=== PATIENT | female | born 1960 | race Caucasian/White ===

== ENCOUNTER → 2016-05-09 | Outpatient (CLI) | payer BC ==
[~2016-05-09] MED LIST: ANTIBIOTIC O500 U/GM TP; BACTRIM DS 8001 TA1 PO; CLEOCIN150 MG PO; KEFLEX500 MG PO; MOTRIN800 MG PO; NEXIUM40 MG PO; ZOFRAN4 MG PO
== END | disposition home or self-care (01) ==
LOC: ORTHO 01:21
DX: M25.512 Pain in left shoulder (principal)

== ENCOUNTER → 2016-07-24 | Outpatient (CLI) | payer BC ==
[2016-07-24 13:22] LABS: ALKALINE PHOSPHATASE 70 U/L (45-117); BILIRUBIN, TOTAL 0.3 mg/dl (0.2-1.0); BUN 23 mg/dl (7-24); CARBON DIOXIDE 27 mmol/L (21-32); CHLORIDE 109 mmol/L (98-107); EST GLOM FILT AFRICAN AMERICAN > 60 ml/min; GLUCOSE 87 mg/dL (65-99); POTASSIUM 4.3 mmol/L (3.5-5.1); SGOT/AST 17 IU/L (3-35); SGPT/ALT 28 U/L (12-78); SODIUM 144 mmol/L (136-145); TOTAL PROTEIN 6.9 gm/dL (6.4-8.2)
[2016-07-24 16:28] LABS: BILIRUBIN NEGATIVE (NEGATIVE); BLOOD TRACE-INTACT (NEGATIVE); CLARITY SL CLOUDY (CLEAR); COLOR YELLOW (YELLOW); GLUCOSE NEGATIVE (NEGATIVE); KETONE NEGATIVE (NEGATIVE); LEUKO ESTERASE 1+ (NEGATIVE); NITRITE POSITIVE (NEGATIVE); PH 5.5 (5.0-9.0); PROTEIN NEGATIVE (NEGATIVE); SPECIFIC GRAVITY 1.025 (1.005-1.030); UROBILINOGEN 0.2 E.U./dl (0.2-1.0)
[2016-07-24 16:35] LABS: BACTERIA 4+
== END | disposition home or self-care (01) ==
LOC: LAB 10:40
PROVIDERS: Orthopaedic Surgery
DX: Z01.818 Encounter for other preprocedural examination (principal); M75.102 Unspecified rotator cuff tear or rupture of left shoulder, not specified as traumatic; M75.40 Impingement syndrome of unspecified shoulder

== ENCOUNTER → 2016-08-07 | Day surgery (SDC) | payer BC ==
[2016-07-24 10:52] VITALS: BP 134/70
[2016-08-06 12:06] LABS: BASO # 0.1 10*3/uL (0.0-0.1); BASO % 0.7 % (0.0-1.0); EOS # 0.1 10*3/uL (0.0-0.4); EOS % 1.9 % (1.0-4.0); HEMATOCRIT 40.1 % (37.0-47.0); HEMOGLOBIN 13.9 g/dl (12.0-16.0); LYMPH # 2.8 10*3/uL (1.3-4.4); LYMPH % 42.1 % (27.0-41.0); MEAN CELL VOLUME 92.4 fl (81.0-99.0); MEAN CORPUSCULAR HGB CONC 34.7 g/dl (33.0-37.0); MEAN PLATELET VOLUME 9.4 fl (9.6-12.3); MONO # 0.4 10*3/uL (0.1-1.0); MONO % 5.6 % (3.0-9.0); NEUT # 3.3 10*3/uL (2.3-7.9); NEUT % 49.4 % (47.0-73.0); PLATELET COUNT AUTOMATED 181 10*3/uL (130-400); RED BLOOD COUNT 4.34 10*6/uL (4.10-5.10); RED CELL DISTRI WIDTH 12.9 % (0-14.5); WHITE BLOOD COUNT 6.8 10*3/uL (4.8-10.8)
[2016-08-07] VITALS (12 sets, daily range): BP systolic 144–165; BP diastolic 76–92
[~2016-08-07] VITALS: Ht 170.1 cm; Wt 68.0 kg
[~2016-08-07] MED LIST changes: +PERCOCET 325 MG1 TA2 PO
--- NOTE | ~2016-08-07 | O ---
[place], [place] OPERATIVE NOTE [facility]: [id number] UNIT #: [id number] ROOM: DOCTOR: JACKIE REYES DO BIRTHDATE: [birth year] DOS: 08/07/2016 PREOPERATIVE DIAGNOSES: Left rotator cuff tear, impingement, acromioclavicular joint arthritis. POSTOPERATIVE DIAGNOSES: Left rotator cuff tear, impingement, acromioclavicular joint arthritis. OPERATIVE PROCEDURE: Left rotator cuff repair, subacromial decompression and Hector procedure. SURGEON: Jackie Reyes DO. PHYSICIAN AIDE: Vansesa. ANESTHESIA: Rios, SLATE SPLITTER. INDICATIONS: The patient is a 56-year-old female with a history of pain and disability in the left shoulder, unrelieved with conservative care. Risks and benefits of the procedure were explained to the patient preoperatively. Preoperative labs and x-rays were obtained. PROCEDURE IN DETAIL: The left shoulder was marked in the holding room. The patient was brought to the operative suite. The patient was placed supine on the operative table. A general anesthetic with endotracheal intubation was performed. The patient was placed into a modified beach chair position. Time-out was performed. The patient received Ancef 2 grams IV piggyback. Landmarks were identified after the left shoulder was prepped and draped in the usual orthopedic fashion. An incision was planned between the acromion and the coracoid process, marked with a marking pen and injected with Marcaine 0.5% with epinephrine. An incision was made sharply with a scalpel. Subcutaneous tissue was spread down to the level of the deltoid. Deltoid was released from the acromion. The acromial spurs were identified and an osteotome was used to remove the anterior 1 cm of the acromion. The undersurface of the acromion was gently smoothed using a handheld rasp. The undersurface of the acromioclavicular joint was palpated and noted to have some spurring and impingement upon the area of the rotator cuff repair. The capsule was cleared from the distal acromion. An oscillating saw was used to remove the distal 1 cm of the acromion. The undersurface was smoothed with the rasp. Attention was then turned to the rotator cuff tear. This was noted to be approximately 2.5 x 2 cm at the level of the supraspinatus with some retraction. The Arthrex bone anchors were utilized to repair the tear. Initially, a punch was utilized at the level of the supraspinatus footprint followed by placement of 2 Arthrex BioComposite SwiveLock double-loaded anchors. The anchors were advanced and noted to be flushed at the acromion. The TaxJar suture passer was utilized to create a SpeedBridge with the FiberTape from the SwiveLock. When this was completed, the additional SwiveLocks were threaded with the [place], [place] OPERATIVE NOTE NAME: NIR HAWKINS UNIT #: [id number] ROOM: DOCTOR: JACKIE REYES DO BIRTHDATE: [birth year] FiberTape, one from each of the previously placed SwiveLocks. The final 2 SwiveLocks were placed using a punch followed by manual tightening and evaluation of the tear. There was noted to be a continued flap of the supraspinatus and the repair was reinforced using the stay sutures on the final 2 SwiveLocks. The tear was evaluated and taken through a range of motion and noted to have adequate repair. The FiberTape and FiberWire were cut. The area was copiously irrigated with normal saline. The deltoid was allowed to return to its natural position at the acromion and this was repaired using 2-0 FiberWire. The acromioclavicular joint was repaired with 2-0 Vicryl. The area was copiously irrigated with normal saline and closed with 2-0 Vicryl followed by skin christelle. Incision was again injected with Marcaine 0.5% with epinephrine. Xeroform, 4 x 4s, ABDs, and Tegaderm were applied as a dressing, followed by a sling with an abduction pillow. The patient was returned to a supine position. The anesthetic was reversed. The patient was extubated and taken to the recovery room in satisfactory condition. COUNTS: Sponge and needle count correct. ESTIMATED BLOOD LOSS: 100 mL. FINDINGS: 1. Left rotator cuff tear, complete with retraction. 2. Subacromial impingement. 3. Degenerative changes of the acromioclavicular joint. SPECIMENS: Distal clavicle and anterior acromion. DRAINS: None. PACKING: None. COMPLICATIONS: None. IMPLANTS: Arthrex BioComposite SwiveLock C 4.75 x 19.1, #2. Arthrex BioComposite SwiveLock double-loaded 4.75 x 22, #2. [place], [place] OPERATIVE NOTE NAME: NIR HAWKINS UNIT #: [id number] ROOM: DOCTOR: JACKIE REYES DO BIRTHDATE: [birth year] JACKIE REYES DO CM:OPRECORD:OPERATIVE NOTE [id number] JACKIE REYES DO 08/07/16 [id number]
== END | disposition home or self-care (01) ==
LOC: SDC 07-24 11:00
PROVIDERS: Orthopaedic Surgery
DX: M75.102 Unspecified rotator cuff tear or rupture of left shoulder, not specified as traumatic (principal); M75.42 Impingement syndrome of left shoulder; M19.012 Primary osteoarthritis, left shoulder; Z90.710 Acquired absence of both cervix and uterus; Z80.9 Family history of malignant neoplasm, unspecified

== ENCOUNTER → 2017-01-14 | Outpatient (CLI) | payer BC | END | disposition home or self-care (01) | LOC: ORTHO 02:16 | DX: M25.512 Pain in left shoulder (principal) ==

== ENCOUNTER 2023-12-20 19:17 | Emergency (ER) | payer OTHER ==
[~2023-12-20] VITALS: Ht 167.6 cm; Wt 79.6 kg
[2023-12-20 19:27] VITALS: BP 161/63
[2023-12-20] MEDS ORDERED: fentaNYL CITRATE 100 MCG/2 ML VIAL IV ONE (19:35)
[2023-12-20] MEDS ORDERED: SODIUM CHLORIDE 0.9% 1,000 ML IV ONE (19:35)
[2023-12-20] MEDS ORDERED: Ondansetron Hydrochloride 4 MG/2 ML VIAL IV ONE (19:35)
[2023-12-20 19:39] LABS: BILIRUBIN Negative (Negative); BLOOD Trace-Intact (Negative); CLARITY Clear (Clear); COLOR Yellow (Yellow); GLUCOSE Negative (Negative); KETONE Negative (Negative); LEUKO ESTERASE 3+ (Negative); NITRITE Negative (Negative); SPECIFIC GRAVITY 1.015 (1.001-1.030); UROBILINOGEN 0.2 E.U./dl (0.0-1.0)
[2023-12-20] MEDS ORDERED: Ketorolac Tromethamine 15 MG/ML VIAL IV ONE (19:40)
[2023-12-20 19:48] LABS: BASO % 0.4 % (0.0-1.0); EOS # 0.1 10*3/uL (0.0-0.4); EOS % 0.9 % (1.0-4.0); LYMPH # 2.6 10*3/uL (1.3-4.4); LYMPH % 23.7 % (27.0-41.0); MEAN CORPUSCULAR HGB 32.4 pg (27.0-31.0); MEAN PLATELET VOLUME 9.6 fl (9.6-12.3); MONO # 0.8 10*3/uL (0.1-1.0); MONO % 6.7 % (3.0-9.0); NEUT # 7.6 10*3/uL (2.3-7.9); NEUT % 67.9 % (47.0-73.0); PLATELET COUNT AUTOMATED 186 10*3/uL (130-400); RED BLOOD COUNT 4.42 10*6/uL (4.10-5.10); RED CELL DISTRI WIDTH 12.9 % (0-14.5); WHITE BLOOD COUNT 11.2 10*3/uL (4.8-10.8)
[2023-12-20 19:50] LABS: BACTERIA 1+; MUCOUS 1+
[2023-12-20] MEDS ORDERED: FAMOTIDINE20 M1 PO (19:55)
[2023-12-20] MEDS ORDERED: ZESTRIL10 MG PO (19:55)
[2023-12-20] MEDS ORDERED: NEXIUM20 M1 PO (19:56)
[2023-12-20] MEDS ORDERED: ROSUVASTATIN CA20 MG PO (20:03)
[2023-12-20 20:04] LABS: ALKALINE PHOSPHATASE 61 U/L (46-116); BUN 17 mg/dl (9-23); CHLORIDE 110 mmol/L (98-107); SGPT/ALT 31 U/L (5-49); TOTAL PROTEIN 7.2 gm/dL (6.0-8.0)
[2023-12-20] MEDS ORDERED: Tamsulosin Hydrochloride 0.4 MG CAP PO ONE (20:20)
[2023-12-20] MEDS ORDERED: KETOROLAC10 MG PO (20:25)
[2023-12-20] MEDS ORDERED: HYDROCODONE-AC1 EACH PO (20:25)
[2023-12-20] MEDS ORDERED: FLOMAX0.4 MG PO (20:25)
[2023-12-20] MEDS ORDERED: Ondansetron4 MG PO (20:25)
== END 2023-12-20 21:00 | disposition home or self-care (01) ==
LOC: ED 19:17
PROVIDERS: Nurse Practitioner Family
DX: N13.2 Hydronephrosis with renal and ureteral calculous obstruction (principal); R11.2 Nausea with vomiting, unspecified; Z88.1 Allergy status to other antibiotic agents; Z88.5 Allergy status to narcotic agent; Z90.49 Acquired absence of other specified parts of digestive tract; Z90.710 Acquired absence of both cervix and uterus